=== PATIENT | female | born 1975 | race Caucasian/White ===

== ENCOUNTER 2023-11-14 17:13 | Emergency (ER) | payer MEDICAID, OTHER ==
[~2023-11-14] VITALS: Ht 160 cm; Wt 68.0 kg
[2023-11-14 17:33] VITALS: O2SAT 100
[2023-11-14] MEDS ORDERED: ACETAMINOPHEN 325MG TABLET PO NR (18:00)
[2023-11-14] MEDS: KETOROLAC 60MG/2ML VIAL IM NR (19:15)
[2023-11-14 21:31] VITALS: BP 153/76; PULSE 83; RESP 16; TEMP 98.2
== END 2023-11-14 21:34 | disposition home or self-care (01) ==
LOC: ER 17:13
DX: R07.89 Other chest pain (principal); J45.909 Unspecified asthma, uncomplicated; Z88.6 Allergy status to analgesic agent; V49.9XXA Car occupant (driver) (passenger) injured in unspecified traffic accident, initial encounter; Y93.89 Activity, other specified; Y92.89 Other specified places as the place of occurrence of the external cause; Y99.8 Other external cause status
CPT/HCPCS: 71046; 96372; 99283; J1885; Z7610